=== PATIENT | male | born 1945 | race Caucasian/White ===

== ENCOUNTER 2016-07-02 12:39 | Day surgery (SDC) | payer MEDICARE, BC ==
[~2016-07-02 12:39] MED LIST: NORMAL SALINE 1,000 ML IV PRN
[2016-07-02] MEDS ORDERED: NORMAL SALINE 1,000 ML IV ONE (13:28)
--- NOTE | 2016-07-02 14:05 | OR ---
Operative Report - Dictated Report Narrative: Location: Main OR Anesthesia: Mac anesthesia Surgeon: Dr. Ndiaye Preoperative diagnosis: Suspected neurogenic bladder Postoperative diagnosis: Same, Ringgold tree appearance the bladder with significant trabeculation. Medium prostate bilobar hypertrophy tight bladder neck probably some contribution of BPH with obstruction as well. Procedure: #1 Cystoscopy with bladder washing for cytology #2 attempted bilateral retrogrades, failed secondary to anatomy Indications: 70-year-old male with multiple sclerosis. Indwelling Mosqueda catheter for long time. CT without stones or hydronephrosis. Creatinine around 1.2. Cystoscopy indicated to assess bladder for BPH with obstruction or other potential causes for recurrent bladder pain/ potentialinfection Description: Consent obtained. Patient brought to the operating room where general endotracheal anesthesia was induced. Placed in the dorsal lithotomy position. Prepped and draped. Timeout taken. For having indwelling Mosqueda there was not a lots of urethral erosion. Rigid cystoscope introduced and navigated towards the bladder. Bladder neck/ prostatic urethra bit snug. Required significant downward deflection to enter bladder. Prostate is medium with bilobar hypertrophy doesn't appear to have somewhat of an obstructing component but I think to neurogenic side as the bigger player. Could hardly see anything with 30 lens secondary to inability to downward deflect any further safely. 70 lens was used in the bladder his Ringgold tree like with significant trabeculation/thickening, does look neurogenic. Ureters were visible with 70 lens but they seem displaced laterally and cephalad compared to normal bladder. Washing was obtained sent for cytology. I switched back to the 30 lens and brought in a 5 [place] yellow catheter and attempted to obtain retrograde pyelograms but I could not reach ureteric orifice ease secondary to anatomy and stiffness of bladder neck without putting him at risk for stirring up trouble. I felt at this point I had enough information to confirm neurogenic bladder. Argument for TURP could be made from a urination standpoint to improve outflow but prior to going there I would treat him maximally with medical therapy. I think urodynamics would be very difficult to obtain and interpreted in him. Ultimately I think Botox paralysis dose is ideally what would help what I believe are bladder spasms causing his discomfort from the neurogenic bladder. Specimen: Urine for cytology and culture EBL: 0 ml Condition: tolerated procedure Important findings: Neurogenic like bladder from MS with Shamir tree-type appearance and cephalad/lateral distortion of ureters. Inability to obtain retrogrades for bladder anatomy. 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 I do believe there is an obstructive component there as well. Follow-up: My plan is to treat maximally for BPH with Flomax and Proscar. Would place on Myrbetriq to help with what I believe are bladder spasms resulting in discomfort and incontinence and would place on methenamine hippurate to try and decrease colonization. If that does not work can consider Botox. I will see him back in 6 weeks with an ultrasound and creatinine. Catheter should be changed monthly
[2016-07-02 15:02] VITALS: BP 119/76
== END 2016-07-02 12:40 | disposition home or self-care (01) ==
LOC: AMB 12:39
PROVIDERS: ATTEND Urology
PROC: 3E1K88X Irrigation of Genitourinary Tract using Irrigating Substance, Via Natural or Artificial Opening Endoscopic, Diagnostic (ICD-10-PCS; 2016-07-02)
PROC: 0TJB8ZZ Inspection of Bladder, Via Natural or Artificial Opening Endoscopic (ICD-10-PCS; principal; 2016-07-02 15:45)
DX: N31.9 Neuromuscular dysfunction of bladder, unspecified (principal); N40.1 Benign prostatic hyperplasia with lower urinary tract symptoms; N32.89 Other specified disorders of bladder; E11.22 Type 2 diabetes mellitus with diabetic chronic kidney disease; N18.4 Chronic kidney disease, stage 4 (severe); J45.909 Unspecified asthma, uncomplicated; E78.5 Hyperlipidemia, unspecified; K21.9 Gastro-esophageal reflux disease without esophagitis; G35 Multiple sclerosis; Z68.30 Body mass index [BMI] 30.0-30.9, adult; Z87.891 Personal history of nicotine dependence